=== PATIENT | male | born 1960 | race Caucasian/White ===

== ENCOUNTER → 2016-10-20 | Outpatient (CLI) | payer OTHER ==
--- NOTE | ~2016-10-20 | MR17 ---
[facility] A Service of [facility] & [facility] RADIOLOGY TEXT RESULTS PATIENT: REID ALVAREZ LOCATION: [facility] : 62 UNIT #: [id number] AGE: [address]: Mook Lewis MD SEX: M ORDER DR: [id number] [address] [address] [id number] O MR#: [id number] Acc #: [id number] NAME: REID ALVAREZ : 1960 SEX: M STUDY DATE/TIME: 10/20/2016 17:02 UNIT: [facility] ROOM: STUDY DESCRIPTION: MR Brain WWo Contrast Attending Physician: Mook Lewis M.D. Referring Physician: Mook Lewis M.D. Ordering Physician: Mook Lewis M.D. Primary Care Physician: Primary Care Physician No MRI CENTER REPORT This report is preliminary unless electronic signature is present. EXAM MR brain with and without HISTORY Rule out stroke. 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 Complains of right side upper and lower extremity weakness for 4 months mostly upper right arm weakness. Right-sided hemiparesis. COMMENT MRI of the brain was performed prior to and following intravenous administration 20 mL of MultiHance. There is no comparison at this institution. Efforts are being made to see if there are some outside films for comparison and if they are obtained I will addend this report. There is no evidence for a recent ischemic insult on the diffusion series. There is no Chiari-I malformation. There is no extraaxial fluid collection. The major arterial intracranial flow voids are maintained. There is mild paranasal sinus mucosal thickening but no sinus air-fluid level. The left side mastoid air cells are clear. There are postoperative changes of mastoidectomy on the right consistent with history of treated right-sided acoustic neuroma. Small amount of expected postoperative encephalomalacia noted at the adjacent anterior right cerebellar hemisphere. There is only minimal white matter signal abnormality within the range of expected for age group and probably due to small vessel disease. There is no MRI evidence for intracranial hemorrhage. Following contrast administration, there is no pathologic intracranial enhancement. No suspicion for recurrence of the acoustic neuroma at this time. If the outside films are acquired for comparison, this will also be helpful. IMPRESSION 1. There is no evidence for a recent ischemic insult on the diffusion STS. [facility] A Service of [facility] & [facility] RADIOLOGY TEXT RESULTS PATIENT: REID ALVAREZ LOCATION: [facility] : 62 UNIT #: [id number] AGE: [address]: Mook Lewis MD SEX: M ORDER DR: series. 2. Postoperative changes right side mastoidectomy consistent with treatment of a right-sided acoustic neuroma as indicated in the history. At this time, there is no suspicion for recurrence. If outside films are acquired for comparison, this will also be helpful. 3. Small amount of encephalomalacia at the anterior aspect of the right cerebellar hemisphere adjacent to the postoperative bed representing an expected postoperative finding. Otherwise essentially unremarkable appearance of the brain with and without contrast for age group. Dictated by... Gina Nichole M.D. THIS IS AN ELECTRONICALLY VERIFIED REPORT Gina Nichole M.D. at 10/21/2016 2:25 PM ANTONIO/ally TD: 10/21/2016 08:12 JOB #: [id number] MRI CENTER REPORT Page 1 of 1
== END | disposition home or self-care (01) ==
LOC: SMRI 15:38
DX: G81.91 Hemiplegia, unspecified affecting right dominant side (principal); D33.3 Benign neoplasm of cranial nerves; G93.89 Other specified disorders of brain; Z98.890 Other specified postprocedural states
CPT/HCPCS: 70553; A9581

== ENCOUNTER → 2016-11-02 | Outpatient (CLI) | payer OTHER ==
--- NOTE | ~2016-11-02 | MR32 ---
[facility]. [facility] A Service of [facility] & [facility] RADIOLOGY TEXT RESULTS PATIENT: REID ALVAREZ LOCATION: [facility] : 62 UNIT #: [id number] AGE: [address]: Mook Lewis MD SEX: M ORDER DR: [id number] [address] [address] [id number] O MR#: [id number] Acc #: [id number] NAME: REID ALVAREZ : 1960 SEX: M STUDY DATE/TIME: 11/02/2016 10:45 UNIT: [facility] ROOM: STUDY DESCRIPTION: MR Cervical Wo Contrast Attending Physician: Mook Lewis M.D. Referring Physician: Mook Lewis M.D. Ordering Physician: Mook Lewis M.D. Primary Care Physician: No Primary Care Physician MRI CENTER REPORT This report is preliminary unless electronic signature is present. EXAM MRI of the cervical spine without contrast dated 11/02/2016. COMPARISON MRI brain with and without contrast dated 10/20/2016. No prior cervical spine studies. HISTORY Right upper extremity weakness and dysfunction for 3-4 months. FINDINGS Multisequence multiplanar imaging of the cervical spine was obtained without contrast. Vertebral body heights and alignment are relatively preserved. No acute fracture, subluxation or bone edema. Disc osteophyte complex are noted throughout the cervical spine. Cord demonstrates normal expected course, caliber and signal. Imaged posterior fossa and craniovertebral junction are grossly unremarkable. Pre and paravertebral soft tissues do not demonstrate any significant abnormality. C2-3: Concentric disc bulge with superimposed [id number] central protrusion and mild mass effect on the adjacent thecal sac. No neural foraminal narrowing. C3-4: Concentric disc bulge with superimposed left central to right central protrusion which extends to the right subarticular region. Borderline size to mild canal stenosis with Mild right neural foraminal encroachment. C4-5: Concentric disc bulge with superimposed central protrusion. Borderline size to mild canal stenosis without neural foraminal narrowing. C5-6: Concentric disc bulge with small central protrusion. No canal [facility] A Service of [facility] & [facility] RADIOLOGY TEXT RESULTS PATIENT: REID ALVAREZ LOCATION: [facility] : 62 UNIT #: [id number] AGE: [address]: Mook Lewis MD SEX: M ORDER DR: stenosis or neural foraminal narrowing. Mild left facet changes. C6-7: Mild disc bulge with tiny central occlusion. No canal stenosis or neural foraminal narrowing. C7-T1: Mild degenerative disc signal loss but otherwise unremarkable. IMPRESSION 1. Degenerative changes are noted at multiple levels, slightly worse at C3-4 and C4-5 with borderline size to mild canal stenosis. 2. Cord is unremarkable. No significant neural foraminal narrowing or nerve impingement. Dictated by... Eduar White M.D. THIS IS AN ELECTRONICALLY VERIFIED REPORT Eduar White M.D. at 11/03/2016 10:53 AM CPR/sinan TD: 11/03/2016 06:12 JOB #: [id number] MRI CENTER REPORT Page 1 of 1
== END | disposition home or self-care (01) ==
LOC: SMRI 10:19
DX: G81.91 Hemiplegia, unspecified affecting right dominant side (principal); M48.02 Spinal stenosis, cervical region; M47.892 Other spondylosis, cervical region
CPT/HCPCS: 72141